=== PATIENT | female | born 1975 | race African-American/Black ===

== ENCOUNTER 2021-08-03 07:21 | Day surgery (SDC) | payer BC ==
[~2021-08-03] VITALS: Ht 157.5 cm; Wt 55.8 kg
[~2021-08-03 07:21] MED LIST: LOVENOX 3030 MG/0.3 SQ; METRONIDAZOLE500 MG PO; PRENATAL VITAMI1 TA5 PO
[2021-08-03] MEDS ORDERED: MULTI VITAMINS1 TAB PO (07:53)
[2021-08-03 08:00] VITALS: BP 110/71; PULSE 57; TEMP 98
[2021-08-03 09:30] VITALS: BP 100/75; PULSE 71; TEMP 98.7
[2021-08-03 09:45] VITALS: BP 97/68; PULSE 52
[2021-08-03 10:00] VITALS: BP 97/57; PULSE 58
[2021-08-03 10:15] VITALS: BP 103/61; PULSE 64
--- NOTE | 2021-08-03 10:25 | NUR ---
0930 Pt returns from endo procedure via cart and RN assist to [facility] [place] [facility]. Pt ambulates from cart to recliner with RN assist. Monitors on and alarms set. Call light within reach. Report received from DENISE Godadrd. Pt alert and oriented. Pt requests coffee and muffin. Pt denies any pain or nausea. Pt's present in room. 0950 Pt taking food and drink well. No complications noted. 1020 Discharge instructions given to pt and pt's . All questions answered to their satisfaction. Handed to pt are a thank you card and discharge information. 1025 Pt transferred out of the hospital via wheelchair and [place] assist, to private vehicle driven by pt's .
== END 2021-08-03 10:25 | disposition home or self-care (01) ==
LOC: SDCO 07:21
DX: Z12.11 Encounter for screening for malignant neoplasm of colon (principal); K57.30 Diverticulosis of large intestine without perforation or abscess without bleeding; Z86.010 Personal history of colon polyps; Z80.0 Family history of malignant neoplasm of digestive organs
CPT/HCPCS: J2704; J7120

== ENCOUNTER → 2021-08-28 | Outpatient (CLI) | payer BC ==
[~2021-08-28] MED LIST changes: +MULTI VITAMINS1 TAB PO
== END ==
LOC: MC.RAD 07:28
DX: Z12.31 Encounter for screening mammogram for malignant neoplasm of breast (principal)

== ENCOUNTER → 2023-05-14 | Outpatient (CLI) | payer BC | LOC: CANSCHCLI → MC.RAD 09:20 | DX: Z12.31 Encounter for screening mammogram for malignant neoplasm of breast (principal) ==